=== PATIENT | male | born 1995 | race Hispanic/Latino ===

== ENCOUNTER 2020-04-02 07:42 | Emergency (ER) | payer OTHER, SELFPAY ==
[2020-04-02] MEDS ORDERED: NA CHLORIDE 0.9% 1,000 ML ONE (08:27)
[2020-04-02] MEDS ORDERED: FAMOTIDINE 20 MG/2 ML VIAL IV ONE (08:27)
[2020-04-02 08:56] LABS: Potassium 3.5 mmol/L (3.5-5.1)
[2020-04-02 09:31] LABS: Absolute Lymphocytes (CBC) 1.3 K/uL (0.7-4.9); Basophils % 0.3 % (0-1.3); Hematocrit 44.6 % (39.6-49.0); Lymphocytes % 16.5 % (15.3-44.8); MPV 8.9 fL (7.6-11.3); RBC Red Blood Cell Count 5.13 M/uL (4.33-5.43)
--- NOTE | 2020-04-02 09:35 | EDPHYS ---
Physician Documentation [facility] Name: All Bunn Jr Age: 24 yrs Sex: Male : 1995 Arrival Date: 04/02/2020 Time: 07:43 Bed 8 Private MD: Supa Farias ED Physician Deonte Dugan HPI: 04/02 08:01 This 24 yrs old Male presents to ER via Ambulatory with complaints of kb Diarrhea, acid reflux. 08:01 The patient presents to the emergency department with nausea, vomiting, diarrhea. kb Onset: The symptoms/episode began/occurred 3 day(s) ago. Possible causes: unknown. The symptoms are aggravated by nothing. The symptoms are alleviated by nothing. Associated signs and symptoms: Pertinent positives: diarrhea, nausea, vomiting, Pertinent negatives: abdominal pain, fever. Severity of symptoms: At their worst the symptoms were moderate in the emergency department the symptoms are unchanged. The patient has not experienced similar symptoms in the past. The patient has not recently seen a physician. Pt reports diarrhea for 3 days. Had nausea and vomiting on the first day for "4 minutes," but none since then. Denies abd pain. States he will be ok for about 6 hours during the day and then the diarrhea starts again at 1900. Denies fever. Denies sick contacts. Historical: - Allergies: 07:55 No Known Allergies; hb - Home Meds: 07:55 atenolol 25 mg Oral tab 0.5 tab once daily [Active]; omeprazole 20 mg Oral cpDR 1 cap hb once daily [Active]; - PMHx: 07:55 GERD; Heart Murmur; hb - PSHx: 07:55 ARM SURG; EGD; hb - Immunization history:: Adult Immunizations up to date. - Social history:: Smoking status: Patient denies any tobacco usage or history of. ROS: 08:01 Constitutional: Negative for fever, chills, and weight loss, Cardiovascular: Negative kb for chest pain, palpitations, and edema, Respiratory: Negative for shortness of breath, cough, wheezing, and pleuritic chest pain, Back: Negative for injury and pain, MS/Extremity: Negative for injury and deformity, Skin: Negative for injury, rash, and discoloration, Neuro: Negative for headache, weakness, numbness, tingling, and seizure. 08:01 Abdomen/GI: Positive for nausea, vomiting, and diarrhea, Negative for abdominal pain. Exam: 08:01 Constitutional: This is a well developed, well nourished patient who is awake, alert, kb and in no acute distress. Head/Face: Normocephalic, atraumatic. Chest/axilla: Normal chest wall appearance and motion. Nontender with no deformity. No lesions are appreciated. Cardiovascular: Regular rate and rhythm with a normal S1 and S2. No gallops, murmurs, or rubs. Normal PMI, no JVD. No pulse deficits. Respiratory: Lungs have equal breath sounds bilaterally, clear to auscultation and percussion. No rales, rhonchi or wheezes noted. No increased work of breathing, no retractions or nasal flaring. Abdomen/GI: Soft, non-tender, with normal bowel sounds. No distension or tympany. No guarding or rebound. No evidence of tenderness throughout. Skin: Warm, dry with normal turgor. Normal color with no rashes, no lesions, and no evidence of cellulitis. MS/ Extremity: Pulses equal, no cyanosis. Neurovascular intact. Full, normal range of motion. Neuro: Awake and alert, GCS 15, oriented to person, place, time, and situation. Cranial nerves II-XII grossly intact. Motor strength 5/5 in all extremities. Sensory grossly intact. Cerebellar exam normal. Normal gait. Vital Signs: 07:53 BP 156 / 109; Pulse 120; Resp 16; Temp 97.9; Pulse Ox 100% ; Weight 111.58 kg; Height 6 hb ft. 1 in. (185.42 cm); Pain 0/10; 08:48 BP 134 / 93; Pulse 99; Resp 18; Pulse Ox 100% on R/A; ph 09:53 BP 127 / 89; Pulse 94; Resp 18; Temp 97.9; Pulse Ox 99% on R/A; ph 07:53 Body Mass Index 32.46 (111.58 kg, 185.42 cm) hb MDM: 07:50 Patient medically screened. kb 08:01 Data reviewed: vital signs, nurses notes. Data interpreted: Pulse oximetry: on room air kb is 100 %. Interpretation: normal. 09:34 Counseling: I had a detailed discussion with the patient and/or guardian regarding: the kb historical points, exam findings, and any diagnostic results supporting the discharge/admit diagnosis, lab results, the need for outpatient follow up, a family practitioner, to return to the emergency department if symptoms worsen or persist or if there are any questions or concerns that arise at home. 04/02 07:55 Order name: Basic Metabolic Panel; Complete Time: 08:57 kb 04/02 07:55 Order name: CBC with Diff; Complete Time: 09:35 kb 04/02 07:55 Order name: IV Saline Lock; Complete Time: 08:47 kb 04/02 07:55 Order name: Labs collected and sent; Complete Time: 08:47 kb Administered Medications: 08:35 Drug: NS 0.9% 1000 ml Route: IV; Rate: 1000 ml; Site: right antecubital; ph 09:54 Follow up: Response: No adverse reaction; IV Status: Completed infusion; IV Intake: ph 800ml 08:35 Drug: Pepcid 20 mg Route: IVP; Site: right antecubital; ph 09:55 Follow up: Response: No adverse reaction ph Disposition: 04/03 00:12 Co-signature as Attending Physician, Deonte Dugan MD. rn Disposition: 04/02/20 09:34 Discharged to Home. Impression: Diarrhea, unspecified. - Condition is Stable. - Discharge Instructions: Food Choices to Help Relieve Diarrhea, Adult, Diarrhea, Adult, [id number]. - Medication Reconciliation Form, Thank You Letter, Antibiotic Education, Prescription Opioid Use, Work release form form. - Follow up: Emergency Department; When: As needed; Reason: Worsening of condition. Follow up: Private Physician; When: 2 - 3 days; Reason: Recheck today's complaints, Continuance of care, Re-evaluation by your physician. Signatures: Dispatcher [employer] [facility]SC Zahida Velazquez, PUBLIC HEALTH ENGINEER-C PUBLIC HEALTH ENGINEER-Ckb Deonte Dugan MD MD rn Hall, Patricia, RN RN Nayla Bryant RN RN Corrections: (The following items were deleted from the chart) 04/02 09:54 09:34 04/02/2020 09:34 Discharged to Home. Impression: Diarrhea, unspecified. Condition ph is Stable. Forms are Medication Reconciliation Form, Thank You Letter, Antibiotic Education, Prescription Opioid Use. Follow up: Emergency Department; When: As needed; Reason: Worsening of condition. Follow up: Private Physician; When: 2 - 3 days; Reason: Recheck today's complaints, Continuance of care, Re-evaluation by your physician. kb
--- NOTE | 2020-04-02 09:35 | ER ---
Nurse's Notes [facility] Name: All Bunn Jr Age: 24 yrs Sex: Male : 1995 Arrival Date: 04/02/2020 Time: 07:43 Bed 8 Private MD: Supa Farias Diagnosis: Diarrhea, unspecified Presentation: 04/02 07:53 Chief complaint: N/D x 3 days. Denies pain/fever. Coronavirus screen: Proceed with normal triage. Ebola Screen: No symptoms or risks identified at this time. Initial Sepsis Screen: Does the patient meet any 2 criteria? No. Patient's initial sepsis screen is negative. Does the patient have a suspected source of infection? No. Patient's initial sepsis screen is negative. Risk Assessment: Do you want to hurt yourself or someone else? Patient reports no desire to harm self or others. Onset of symptoms was March 31, 2020. 07:53 Method Of Arrival: Ambulatory 07:53 Acuity: NAVEED 3 hb Historical: - Allergies: 07:55 No Known Allergies; hb - Home Meds: 07:55 atenolol 25 mg Oral tab 0.5 tab once daily [Active]; omeprazole 20 mg Oral cpDR 1 cap hb once daily [Active]; - PMHx: 07:55 GERD; Heart Murmur; hb - PSHx: 07:55 ARM SURG; EGD; hb - Immunization history:: Adult Immunizations up to date. - Social history:: Smoking status: Patient denies any tobacco usage or history of. Screenin:48 Abuse screen: Denies threats or abuse. Denies injuries from another. Nutritional ph screening: No deficits noted. Tuberculosis screening: No symptoms or risk factors identified. Fall Risk None identified. Assessment: 08:49 General: Appears in no apparent distress. comfortable, well groomed, Behavior is calm, ph cooperative, appropriate for age, Denies fever. Pain: Denies pain. Neuro: Level of Consciousness is awake, alert, obeys commands, Oriented to person, place, time, situation. Cardiovascular: Capillary refill < 3 seconds in bilateral fingers Patient's skin is warm and dry. Respiratory: Airway is patent Respiratory effort is even, unlabored, Respiratory pattern is regular, symmetrical. GI: Abdomen is round non-distended, Abd is soft and non tender X 4 quads. Reports diarrhea, Patient currently denies abdominal pain, bloody stool, nausea, vomiting. Derm: Skin is intact, is healthy with good turgor, Skin is pink, warm \T\ dry. Musculoskeletal: Circulation, motion, and sensation intact. Range of motion: intact in all extremities. 09:30 Reassessment: Patient appears in no apparent distress at this time. Patient and/or ph family updated on plan of care and expected duration. Pain level reassessed. Patient is alert, oriented x 3, equal unlabored respirations, skin warm/dry/pink. Pt resting comfortably, awaiting lab results, VSS. Vital Signs: 07:53 BP 156 / 109; Pulse 120; Resp 16; Temp 97.9; Pulse Ox 100% ; Weight 111.58 kg; Height 6 hb ft. 1 in. (185.42 cm); Pain 0/10; 08:48 BP 134 / 93; Pulse 99; Resp 18; Pulse Ox 100% on R/A; ph 09:53 BP 127 / 89; Pulse 94; Resp 18; Temp 97.9; Pulse Ox 99% on R/A; ph 07:53 Body Mass Index 32.46 (111.58 kg, 185.42 cm) hb ED Course: 07:43 Patient arrived in ED. am2 07:44 Supa Farias DO is Private Physician. am2 07:44 Zahida Velazquez F[facility]-C [facility]. kb 07:44 Deonte Dugan MD is Attending Physician. kb 07:54 Triage completed. hb 07:55 Arm band placed on. hb 08:00 Jayne Pineda, RN is Primary Nurse. ph 08:30 Initial lab(s) drawn, by ny, sent to lab. Inserted saline lock: 22 gauge in right ph antecubital area, using aseptic technique. Blood collected. 08:49 Patient has correct armband on for positive identification. Bed in low position. Call ph light in reach. Side rails up X 1. Pulse ox on. NIBP on. Door closed. Noise minimized. 09:54 No provider procedures requiring assistance completed. IV discontinued, intact, ph bleeding controlled, No redness/swelling at site. Pressure dressing applied. Administered Medications: 08:35 Drug: NS 0.9% 1000 ml Route: IV; Rate: 1000 ml; Site: right antecubital; ph 09:54 Follow up: Response: No adverse reaction; IV Status: Completed infusion; IV Intake: ph 800ml 08:35 Drug: Pepcid 20 mg Route: IVP; Site: right antecubital; ph 09:55 Follow up: Response: No adverse reaction ph Intake: 09:54 IV: 800ml; Total: 800ml. ph Outcome: 09:34 Discharge ordered by . johnathan 09:54 Discharged to home ambulatory, with significant other. ph 09:54 Condition: good 09:54 Discharge instructions given to patient, Instructed on discharge instructions, follow up and referral plans. Demonstrated understanding of instructions, follow-up care. 09:54 Patient left the ED. ph Signatures: Zahida Velazquez, MANNEQUIN MAKER-C MANNEQUIN MAKER-Jayne Gallego RN RN Nayla Bryant, RN RN Elsa Hampton
[2020-04-02 10:03] VITALS: TEMP 97.9
[2020-04-02 10:06] VITALS: BP 127/89; O2SAT 99
== END 2020-04-02 09:54 | disposition home or self-care (01) ==
LOC: ER 07:42
DX: R19.7 Diarrhea, unspecified (principal); K21.9 Gastro-esophageal reflux disease without esophagitis
CPT/HCPCS: 36415; 80048; 85025; 96361; 96374; 99284; J7030